=== PATIENT | female | born 1970 | race Caucasian/White ===

== ENCOUNTER 2018-05-28 15:00 | Outpatient (CLI) | payer BC ==
--- NOTE | 2018-05-28 15:43 | MMO ---
SCREENING MAMMOGRAM: Date: 05-28-18 Comparison: 05-27-17, 02-03-16, 03-10-15 History: Screening. FINDINGS: This study is interpreted with the assistance of computer aided detection. Benign calcification is seen bilaterally. There is no dominant mass or architectural distortion. No c oncerning microcalcification. IMPRESSION: BIRADS 2 - benign findings. Annual screening mammography recommended. POS: [facility]
== END 2018-05-28 15:01 | disposition home or self-care (01) ==
LOC: SCSMAMMO 15:00
PROVIDERS: ATTEND Obstetrics & Gynecology
DX: Z12.31 Encounter for screening mammogram for malignant neoplasm of breast (principal)
CPT/HCPCS: 77067

== ENCOUNTER 2019-05-06 15:13 | Outpatient (CLI) | payer OTHER ==
--- NOTE | 2019-05-06 17:18 | MRI ---
MRI THORACIC SPINE NONCONTRAST: 05/06/19 HISTORY: 48-year-old female with chronic mid back pain. FINDINGS: There is mild lateral curvature of the upper thoracic spine. Vertebral body heights are maintained. B one marrow signal is normal. No high grade degenerative disc disease at any level. No central stenosi s, neural foraminal stenosis, cord impingement, or nerve root impingement at any level. Thoracic spin al cord is normal in size and signal. Perivertebral spaces are unremarkable. No focal disc herniation . IMPRESSION: 1. Mild lateral curvature of the upper thoracic spine. 2. Otherwise normal. POS: [facility]
--- NOTE | 2019-05-06 17:29 | MRI ---
MRI Lumbar Spine Noncontrast: HISTORY: Chronic mid to low back pain COMPARISON: 07/19/2016 FINDINGS: The visualized retroperitoneal structures demonstrate a normal appearance. Conus medullaris is normal in morphology and terminates at the L1 level. L1-2: There is no disc bulge or disc herniation. Central spinal canal and neural foramina are patent. Mild facet degenerative changes are again seen on the left. L2-3: There is mild loss of intervertebral disc height. A mild broad-based disc osteophyte complex is present. There is mild flattening the anterior aspect of the thecal sac. Neural foramina are patent. L3-4: There is minimal disc bulge without significant narrowing of the central spinal canal. Neural f oramina are patent. Facet hypertrophic changes are seen bilaterally greater on the left. L4-5: Prominent facet hypertrophic changes are seen at this level were also present on the prior exam . There is mild ligamentous thickening. Broad-based disc osteophyte complex is present. There is mild narrowing of the central spinal canal. Neural foramina are patent. L5-S1: There is mild loss of intervertebral disc height. There is a mild disc osteophyte complex with very small central disc protrusion. Small central disc protrusion does encroach on the traversing left S1 nerve root but does not appear to definitely contact or displace the nerve root. Findings are unchanged compared to the prior exam. Central spinal canal and neural foramina are patent. IMPRESSION: Mild degenerative changes in the lumbar spine which are overall stable compared to the prior study in 2016.
== END 2019-05-06 15:14 | disposition home or self-care (01) ==
LOC: SCSMRI 15:13
PROVIDERS: ATTEND Nurse Practitioner Family
DX: M51.16 Intervertebral disc disorders with radiculopathy, lumbar region (principal); M47.26 Other spondylosis with radiculopathy, lumbar region; M43.9 Deforming dorsopathy, unspecified
CPT/HCPCS: 72146; 72148

== ENCOUNTER 2019-10-10 18:27 | Outpatient (CLI) | payer OTHER ==
--- NOTE | 2019-10-10 19:12 | RAD ---
Radiograph abdomen one view: DATE: 10/10/2019 HISTORY: 49-year-old female with constipation FINDINGS: Moderate amount of colonic stool. No gastric distention. Normal bowel gas pattern. No evidence of org anomegaly. IMPRESSION: 1. Normal bowel gas pattern. 2. Moderate volume of colonic stool.
== END 2019-10-10 18:28 | disposition home or self-care (01) ==
LOC: SCSRAD 18:27
PROVIDERS: ATTEND Nurse Practitioner Family
DX: K59.00 Constipation, unspecified (principal)
CPT/HCPCS: 74018

== ENCOUNTER 2021-01-19 10:09 | Outpatient (CLI) | payer BC ==
[2021-01-19] MEDS ORDERED: Sodium Chloride 0.9% 10 ML ONE (11:55)
[2021-01-19] MEDS ORDERED: Morphine 2 MG/ML VIAL ONE (11:55)
--- NOTE | 2021-01-19 12:44 | NM ---
Exam: Nuclear medicine HIDA scan HISTORY: Right upper quadrant pain TECHNIQUE: Patient was administered 4.7 mm of technetium 99m mebrofenin intravenously. Gallbladder ej ection fraction was not assessed FINDINGS: There is uptake in radiotracer by the hepatic parenchyma. This passage of radiotracer from the intrahepatic biliary system and the small bowel loops, via a patent common bile duct. After 1 hour, radiotracer does not of a localizing the gallbladder. Therefore, patient was administered 2 mg of morphine intravenously. Additional imaging was performed. There is localization of radiotracer in the gallbladder. IMPRESSION: No scintigraphic evidence of acute cholecystitis Transcribed Date/Time: 01/19/2021 1:33 PM
== END 2021-01-19 10:10 | disposition home or self-care (01) ==
LOC: NM 10:09
PROVIDERS: ATTEND Family Medicine
DX: R10.11 Right upper quadrant pain (principal)
CPT/HCPCS: 78227; A9537; J2270

== ENCOUNTER 2021-07-26 08:00 | Day surgery (SDC) | payer BC ==
[2021-07-25 10:53] VITALS: BMI 25.8
[2021-07-26] MEDS ORDERED: Thrombin 5000 UNITS/5 ML VIAL ONE (08:47)
[2021-07-26] MEDS ORDERED: Fentanyl 100 MCG/2 ML VIAL ONE ×4 (09:36→13:53)
[2021-07-26] MEDS ORDERED: PROPOFOL 200 MG/20 ML VIAL ONE (09:40)
[2021-07-26] MEDS ORDERED: Ketorolac Tromethamine 30 MG/ML VIAL ONE (09:40)
[2021-07-26] MEDS ORDERED: Ondansetron PF 4 MG/2 ML Vial ONE (09:40)
[2021-07-26] MEDS ORDERED: Glycopyrrolate 0.2 MG/ML 5 ML SYRINGE ONE (09:40)
[2021-07-26] MEDS ORDERED: PHENYLEPHRINE-NS 100 MCG/ML 10 ML SYRINGE ONE (09:40)
[2021-07-26] MEDS ORDERED: ePHEDrine 50 MG/ML VIAL ONE (09:40)
[2021-07-26] MEDS ORDERED: Rocuronium Bromide 10 MG/ML (10ML VIAL) ONE (09:40)
[2021-07-26] MEDS ORDERED: Dexamethasone 20 MG/5 ML VIAL ONE (09:40)
[2021-07-26] MEDS ORDERED: HYDROmorphone 2 MG/ML VIAL ONE ×3 (10:25→13:17)
[2021-07-26] MEDS ORDERED: tiZANidine HCl 4 MG TAB ONE (12:30)
[2021-07-26] MEDS ORDERED: Dexamethasone 4 mg/ml Vial ONE (12:50)
[2021-07-26] MEDS ORDERED: HYDROcodone/Acetaminophen 5/325 mg Tablet ONE (15:08)
== END 2021-07-26 18:06 | disposition home or self-care (01) ==
LOC: SDC 08:00
PROVIDERS: ATTEND Surgery
PROC: 01NB0ZZ Release Lumbar Nerve, Open Approach (ICD-10-PCS; principal; 2021-07-26)
DX: M48.062 Spinal stenosis, lumbar region with neurogenic claudication (principal); M54.16 Radiculopathy, lumbar region; Z79.899 Other long term (current) drug therapy; Z98.1 Arthrodesis status
CPT/HCPCS: 76000; J0690; J1100; J1170; J1885; J2405; J2704; J3010; J3370; J3490

== ENCOUNTER 2022-05-21 11:35 | Outpatient (CLI) | payer BC | END 2022-05-21 11:36 | disposition home or self-care (01) | LOC: SCSMRI 11:35 → BICMRI 11:36 | PROVIDERS: ATTEND Orthopaedic Surgery | DX: M25.512 Pain in left shoulder (principal); M75.112 Incomplete rotator cuff tear or rupture of left shoulder, not specified as traumatic; S43.432A Superior glenoid labrum lesion of left shoulder, initial encounter; M65.812 Other synovitis and tenosynovitis, left shoulder; Q74.0 Other congenital malformations of upper limb(s), including shoulder girdle ==

== ENCOUNTER 2022-11-18 16:16 | Outpatient (CLI) | payer BC ==
[2022-11-18 17:42] LABS: #Eosinphils 0.1 10x3/uL (0.0-0.5); #Monocytes 0.5 10x3/uL (0.0-1.1); #Neutrophils 5.8 10x3/uL (1.5-8.4); %Basophils 0.4 % (0.0-2.0); %Eosinophils 1.2 % (0.0-6.0); %Lymphocytes 29.3 % (18.0-47.0); %Monocytes 5.9 % (0.0-10.0); %Neutrophils 62.9 % (40.0-75.0); Hemoglobin 13.4 g/dL (12.0-15.5); Mean Corpuscular HGB CONC 34.6 g/dL (32.0-36.0); Mean Corpuscular Hemoglobin 30.3 pg (27.0-33.0); Mean Corpuscular Volume 87.6 fl (81.6-98.3); Mean Platelet Volume 9.3 fl (7.4-10.4); Platelet Count 325 10x3/uL (150-450); RBC Distribution Width 12.1 % (11.5-14.5); Red Blood Cell (RBC) Count 4.42 10x6/uL (3.90-5.03); White Blood Cell (WBC) Count 9.2 10x3/uL (3.5-10.5)
[2022-11-18 18:03] LABS: Anion Gap 15 mmol/L (10-20); BUN (Urea Nitrogen) 33 mg/dL (9.8-20.1); Calc. Creatinine Clearance 0 mL/min (70-130); Calcium 9.3 mg/dL (7.8-10.44); Carbon Dioxide 23 mmol/L (22-29); Chloride 104 mmol/L (98-107); Estimated GFR 96; Glucose 101 mg/dL (70-105); Potassium 4.3 mmol/L (3.5-5.1); Sodium 138 mmol/L (136-145)
== END 2022-11-18 16:17 | disposition home or self-care (01) ==
LOC: LABBT 16:16
PROVIDERS: ATTEND Orthopaedic Surgery
DX: Z01.818 Encounter for other preprocedural examination (principal); M75.112 Incomplete rotator cuff tear or rupture of left shoulder, not specified as traumatic
CPT/HCPCS: 80048; 85025; 93005; 93010

== ENCOUNTER 2022-11-20 06:53 | Day surgery (SDC) | payer BC ==
[2022-11-19 08:16] VITALS: BMI 28.1
[2022-11-20] MEDS ORDERED: Bupivacaine/Epinephrine 0.25% 30 ML VIAL ONE (07:10)
[2022-11-20] MEDS ORDERED: Sodium Chloride 0.9% 100 ML ONE (07:30)
[2022-11-20] MEDS ORDERED: CEFAZOLIN 2 GM VIAL ONE (07:30)
[2022-11-20] MEDS ORDERED: Fentanyl 100 MCG/2 ML VIAL ONE ×2 (07:51→07:54)
[2022-11-20] MEDS ORDERED: Midazolam HCl 2 mg/2 ml Vial ONE ×2 (07:51→07:54)
[2022-11-20] MEDS ORDERED: Ropivacaine 0.2% HCl/PF 20 ML ONE (07:52)
[2022-11-20] MEDS ORDERED: SUGAMMADEX SODIUM 200 MG/2 ML VIAL ONE ×2 (08:47→09:44)
[2022-11-20] MEDS ORDERED: Ketorolac Tromethamine 30 MG/ML VIAL ONE (09:00)
[2022-11-20] MEDS ORDERED: Glycopyrrolate 0.2 MG/ML 5 ML SYRINGE ONE (09:00)
[2022-11-20] MEDS ORDERED: ePHEDrine 50 MG/ML VIAL ONE (09:00)
[2022-11-20] MEDS ORDERED: Rocuronium Bromide 10 MG/ML (10ML VIAL) ONE (09:00)
[2022-11-20] MEDS ORDERED: PHENYLEPHRINE-NS 100 MCG/ML 10 ML SYRINGE ONE (09:00)
[2022-11-20] MEDS ORDERED: NEOSTIGMINE 3 MG/3 ML SYR 3 MG/3 ML SYRINGE ONE (09:00)
[2022-11-20] MEDS ORDERED: PROPOFOL 200 MG/20 ML VIAL ONE (09:00)
[2022-11-20] MEDS ORDERED: Dexamethasone 20 MG/5 ML VIAL ONE (09:00)
[2022-11-20] MEDS ORDERED: Lidocaine 1% PF 5 ML VIAL ONE (09:00)
[2022-11-20] MEDS ORDERED: Ondansetron PF 4 MG/2 ML Vial ONE (09:00)
[2022-11-20] MEDS ORDERED: methylPREDNISolone Acetate 40 mg/ml Vial ONE (09:25)
[2022-11-20] MEDS ORDERED: Meperidine HCl/PF 25 MG/ML VIAL ONE (10:23)
[2022-11-20] MEDS ORDERED: Bupivacaine 0.25% HCL 30 ML VIAL ONE (10:46)
[2022-11-20] MEDS ORDERED: EPINEPHrine 1 MG/ML AMP ONE (10:46)
[2022-11-20] MEDS ORDERED: Fentanyl 100 MCG/2 ML VIAL SLOW IVP PRN (11:10)
[2022-11-20] MEDS ORDERED: Zolpidem Tartrate 5 MG TAB PO PRN (11:15)
[2022-11-20] MEDS ORDERED: Promethazine HCl 25 MG/ML VIAL IM PRN (11:15)
[2022-11-20] MEDS ORDERED: Ondansetron PF 4 MG/2 ML Vial IVP PRN (11:15)
[2022-11-20] MEDS ORDERED: Ropivacaine 0.2% 550 ML 550 ML NERVE BLCK SCH (11:15)
== END 2022-11-20 13:17 | disposition home or self-care (01) ==
LOC: SDC 06:53
PROVIDERS: ATTEND Orthopaedic Surgery
DX: M75.112 Incomplete rotator cuff tear or rupture of left shoulder, not specified as traumatic (principal); S43.492A Other sprain of left shoulder joint, initial encounter; M75.02 Adhesive capsulitis of left shoulder; I10 Essential (primary) hypertension; K21.9 Gastro-esophageal reflux disease without esophagitis; Z79.899 Other long term (current) drug therapy; Z98.1 Arthrodesis status
CPT/HCPCS: A4306; J0171; J1030; J1100; J1885; J2175; J2250; J2405; J2704; J2795; J3010; J3490; S0020